=== PATIENT | male | born 1980 | race Caucasian/White ===

== ENCOUNTER → 2024-08-05 06:19 | Day surgery (SDC) | payer BC, SELFPAY | LOC: GI 06:19 | PROVIDERS: ATTENDING PHYSICIAN Internal Medicine Gastroenterology | DX: D50.9 Iron deficiency anemia, unspecified (principal); K64.8 Other hemorrhoids; K44.9 Diaphragmatic hernia without obstruction or gangrene; K22.89 Other specified disease of esophagus; K31.89 Other diseases of stomach and duodenum | CPT/HCPCS: 45378; 43239; 88305 ==

== ENCOUNTER → 2025-09-14 07:14 | Outpatient (REF) | payer BC, SELFPAY | LOC: RCS 07:14 | PROVIDERS: ATTENDING PHYSICIAN Internal Medicine; FAMILY PHYSICIAN Nurse Practitioner Adult Health | DX: Z71.89 Other specified counseling (principal); I73.00 Raynaud's syndrome without gangrene; Z82.49 Family history of ischemic heart disease and other diseases of the circulatory system; R06.09 Other forms of dyspnea | CPT/HCPCS: 75571; 93306 ==

== ENCOUNTER → 2025-09-25 08:34 | Outpatient (REF) | payer BC, SELFPAY | LOC: RCS 08:34 | PROVIDERS: ATTENDING PHYSICIAN Internal Medicine; FAMILY PHYSICIAN Nurse Practitioner Adult Health | DX: Z71.89 Other specified counseling (principal); I73.00 Raynaud's syndrome without gangrene; Z82.49 Family history of ischemic heart disease and other diseases of the circulatory system; R06.09 Other forms of dyspnea | CPT/HCPCS: 93017 ==